=== PATIENT | male | born 1990 | race Caucasian/White ===

== ENCOUNTER 2017-08-06 05:24 | Day surgery (SDC) | payer OTHER ==
[~2017-08-06] VITALS: Ht 177.8 cm; Wt 72.6 kg
--- NOTE | ~2017-08-06 | O ---
[address] [address] OPERATIVE REPORT Name: DARCY VINSON Ashli Room #: DEP [facility].#: [id number] Admission: 08/06/17 Attend Phys: Bert Limon MD Discharge: 08/06/17 Date of : 89 Report #: [id number] THIS REPORT FOR: //name// CC: FAM unknown Bert Limon DATE OF SERVICE: 08/06/2017 SERVICE: Orthopedics. FACILITY: [facility]. SURGEON: Bert Limon MD ECONOMIC ANALYST: None. PREOPERATIVE DIAGNOSES: 1. Right hip pain. 2. 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 3. Right hip extra-articular type subspine impingement. 4. Right hip labral tear. 5. Right hip chondromalacia. POSTOPERATIVE DIAGNOSES: 1. Right hip pain. 2. 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 3. Right hip extra-articular type subspine impingement. 4. Right hip labral tear. 5. Right hip chondromalacia. PROCEDURES: 1. Right hip arthroscopic Cam osteochondroplasty. 2. Right hip arthroscopic extra-articular subspine acetabuloplasty. 3. Right hip arthroscopic labral repair. COMPLICATIONS: None. DRAINS: None. SPECIMENS: None. ESTIMATED BLOOD LOSS: 5 mL. FINDINGS: 1. Chondrolabral junction disruption consistent with Cam impingement. 2. Labral bruising consistent with extra-articular subspine impingement with a [address] [place] [address] OPERATIVE REPORT Name: DARCY VINSON Room #: DEP [facility].#: [id number] Admission: 08/06/17 Attend Phys: Bert Limon MD Discharge: 08/06/17 Date of : 89 Report #: [id number] large subspine region noted on both the preoperative x-rays and the intraoperative x-rays. 3. Labral repair performed with Purnima CinchLock suture anchor x 3 with labral tape. 4. Large Cam osteochondroplasty performed. 5. Capsular closure with #2 Vicryl x 4. 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 The pain has been present for well over a year and he has been treated actively with nonsurgical measures during this time. Preoperative x-rays showed a very large Cam lesion with an alpha angle of greater than 80 degrees and no joint space narrowing with a Tonnis grade of 0. There was also a large crossover sign secondary to subspine prominence on the acetabular side, which was the cause of the extra-articular impingement on the acetabular side. An MRI showed some rim chondromalacia as well as a labral tear. Risks, benefits, alternatives and indications of surgical treatment were discussed with him in detail. Risks include, but not limited to pain, bleeding, infection, injury to nerves or blood vessels, persistent pain despite surgical intervention, failure of any repairs, reconstructions, progression of any preexisting chondral injury, stiffness, need for further surgery as well as complications related to anesthesia such as stroke, heart attack, pulmonary complications, thromboembolic disease and . Despite these risks, he wished to proceed. PROCEDURE IN DETAIL: After right lower extremity was correctly identified in the preoperative holding area as the operative extremity, the patient was taken to the operating room where general anesthesia was induced without complication. He was padded appropriately. Prophylactic antibiotics were administered at appropriate time. He was placed in bilateral traction boots. C-arm was used to map out the femoral head and neck junction. He had a Cam bump that started at the 0 degree position high on the head and neck junction and extended all the way across anterior and medial to the 90 degree position. This was a very large Cam bump with an alpha angle of approximately 85 degrees. Right leg was then prepped and draped in standard sterile fashion. Time-out procedure was performed. Traction was applied to the right leg. Total traction time was 59 minutes. A standard anterolateral viewing portal followed by mid anterior working portal were established in a typical fashion. A transverse capsulotomy was then performed with a blade. There was noted to be significant synovitis. The femoral head articular cartilage was intact. The acetabular articular cartilage was intact for the majority of it, but the anterior peripheral cartilage at the chondrolabral junction was damaged secondary to the Cam impingement and it was graded as chondromalacia grade 2 and 3. There were no full thickness lesions. [address] [address] OPERATIVE REPORT Name: DARCY VINSON Ashli Room #: DEP [facility]#: [id number] Admission: 08/06/17 Attend Phys: Bert Limon MD Discharge: 08/06/17 Date of : 89 Report #: [id number] The extent of the chondromalacia has arc of approximately 2.5 cm with radial depth of approximately 10 mm at the greatest depth and tapering to approximately 2 mm at the narrowest. The shaver was used to debride the chondrolabral junction and this was later completed after the labral repair. The capsule was reflected off the dorsal side of the labrum to allow access to the acetabular rim and then a second capsulotomy was made. A small window in the most proximal portion of the capsule to allow access to the proximal portion of the subspine region of the hip. The bur was used to perform a thorough and complete subspine acetabuloplasty to resect this extra-articular impingement bone and then the bur was used to abrade the edge of the acetabular rim to prepare a bleeding surface for labral refixation. The first anchor was placed more anteromedially with a mattress suture to reduce the labrum and then the second and third were placed more laterally with a mattress suture. This provided good secure labral base refixation. The labrum was probed and found to be stable at this point. The shaver was used to complete the chondroplasty on the acetabular side and then traction was let down. With the hip in extension and internal rotation, this allowed access to the most prominent portion of the bone spur component of the Cam deformity. The bur was used to perform resection of this and then as the Cam resection progressed, the hip was flexed and rotated. The instruments were removed from the hip. I identified an additional area on the distal neck that needed further Cam resection, placed the instruments back into the hip and then completed the Cam osteoplasty and lavaged the bony debris. Final x-rays were then taken to confirm adequate resection and then the capsule was closed with a total of four #2 Vicryl sutures in an interrupted fashion. The instruments were then removed from the hip. The arthroscopic effusion was drained. The portal sites were closed by a deep followed by superficial 3-0 Monocryl stitch. Sterile dressing was applied. The patient was awakened from anesthesia and taken to recovery room in stable condition. There were no complications. All counts were recorded as correct. <ELECTRONICALLY SIGNED> By: Bert Limon MD 08/06/17 1815 [id number] Bert Limon MD /nt
[~2017-08-06 05:24] MED LIST: EXCEDRIN CAPLE1 EACH PO; IBUPROFEN 200200 M1 PO
== END 2017-08-06 13:47 | disposition home or self-care (01) ==
LOC: TBA 05:24 → OR 05:24 → TBA 05:55 → OR 08:26
DX: M24.151 Other articular cartilage disorders, right hip (principal); S73.101A Unspecified sprain of right hip, initial encounter; M94.251 Chondromalacia, right hip; F17.210 Nicotine dependence, cigarettes, uncomplicated; Z98.890 Other specified postprocedural states; Z88.0 Allergy status to penicillin; Z88.6 Allergy status to analgesic agent; X58.XXXA Exposure to other specified factors, initial encounter; Y93.89 Activity, other specified; Y92.89 Other specified places as the place of occurrence of the external cause; Y99.8 Other external cause status
CPT/HCPCS: 50010; 50101; 50386; 51538; 52304; 55430; 56524; 56527; 57092; 62110; 62900; 65060; 70005